=== PATIENT | male | born 1985 | race Caucasian/White ===

== ENCOUNTER 2021-12-22 10:07 | Emergency (ER) | payer BC, OTHER ==
--- NOTE | 2021-12-22 13:18 | ED ---
General Adult HPI - General Chief complaint: Extremity Problem,Nontraumatic Stated complaint: possible blood clot Time Seen by Provider: 12/22/21 12:50 Source: patient, RN notes reviewed, old records reviewed Mode of arrival: ambulatory Limitations: no limitations - History of Present Illness Initial comments: Patient is a 36-year-old male with past medical history remarkable for hypertension who presents emergency Department complaining of a concern for possible blood clot in the right groin. Endorses a 2 day history of swelling in the right groin as well as redness. Urgent care sent him here for ultrasound rule out DVT. No history of blood clots in himself or family members. No recent surgeries or periods of inactivity. No recent long distance travel. Denies any numbness or weakness in the right leg. Has no other acute complaint at this time. Denies any chest pain, shortness breath, dyspnea, cough, hemoptysis. No acute point at this time. Presents for ultrasound. - Related Data Home Medications Medication Instructions Recorded Confirmed Benazepril HCl 40 mg PO HS 11/26/14 03/23/16 amLODIPine [Norvasc] 10 mg PO HS 11/26/14 03/23/16 hydroCHLOROthiazide 25 mg PO DAILY 11/26/14 03/23/16 Ibuprofen [Motrin] 200 mg PO Q6HR PRN 03/23/16 03/23/16 Metoprolol Tartrate [Lopressor] 100 mg PO AC-BID 03/23/16 03/23/16 Previous Rx's Medication Instructions Recorded Sulfamethox-Tmp 800-160Mg [Bactrim 1 tab PO Q12HR 5 Days #10 tab 12/22/21 DS 800-160 mg] Allergies Allergy/AdvReac Type Severity Reaction Status Date / Time Penicillins Allergy Unknown Verified 12/22/21 10:24 Childhood Review of Systems ROS Statement: Those systems with pertinent positive or pertinent negative responses have been documented in the HPI. Review of Systems: CONST: Denies fever EYES: Denies blurry vision ENT: Denies nasal congestion C/V: Denies Chest pain RESP: Denies shortness of breath GI: Denies abdominal pain : Denies dysuria SKIN: Endorses right thigh erythema MSK: Endorses right thigh pain NEURO: Denies headache ROS Other: All systems not noted in ROS Statement are negative. Past Medical History Past Medical History: Hypertension History of Any Multi-Drug Resistant Organisms: None Reported Past Surgical History: No Surgical Hx Reported Past Psychological History: No Psychological Hx Reported Smoking Status: Current some day smoker Past Alcohol Use History: Occasional Past Drug Use History: None Reported General Exam - General Exam Comments Initial Comments: General: Appears in no acute distress. HEAD: Normal with no signs of head trauma. EYES: EOMI ENT: Hearing grossly intact, normal oropharynx. RESPIRATORY: Clear breath sounds bilaterally. No wheezes, rales, or rhonchi. C/V: Regular rate and rhythm. S1 and S2 auscultated, no edema, peripheral pulses 2+ and intact throughout ABD: Abd is soft, nontender, nondistended EXT: Normal range of motion, no obvious deformity. Patient does have some erythema and tenderness to palpation over the anteromedial aspect of the right thigh. SKIN: Patient has some erythema located over the anterior medial aspect of the right thigh. NEURO: Alert and oriented 4. No focal deficits. Limitations: no limitations Course Vital Signs 12/22/21 12/22/21 10:17 10:19 Temperature 97 F L 98.6 F Pulse Rate 68 72 Respiratory 18 18 Rate Blood Pressure 153/100 153/100 O2 Sat by Pulse 98 98 Oximetry Medical Decision Making - Medical Decision Making Based on the patient's presentation and physical exam, I'm concerned for possible DVT the right lower extremity. We will obtain a duplex. Did offer analgesic which she refused. He has no signs or symptoms of a pulmonary embolism at this time I did not believe that he requires further workup per vital signs are within normal limits. There is no hypoxia or increased work of breathing. No dyspnea. He was in agreement this plan. Patient's duplex ultrasound showed no signs of blood clot. Patient does have an enlarged lymph node in the right groin. This likely source of his pain. With overlying erythema, cannot rule out mild cellulitis. Discussed this with the patient. He expressed understanding. Will be placed on a short course of antibiotics. He'll follow up with his PCP. I will provide the patient with a prescription for Bactrim. I instructed the patient to follow up with their PCP in the next 3 days . I explained that the patient should return to the emergency department if they experience any worsening symptoms. Strict return precautions were discussed with the patient. The patient expressed understanding of these instructions. I answered all questions that the patient had. The patient was discharged home in good condition with their prescriptions and follow up information. Disposition Clinical Impression: Enlarged lymph node, Cellulitis Disposition: HOME SELF-CARE Condition: Good Instructions (If sedation given, give patient instructions): Lymphadenopathy (ED), Cellulitis (ED) Prescriptions: Sulfamethox-Tmp 800-160Mg [Bactrim DS 800-160 mg] 1 tab PO Q12HR 5 Days #10 tab Is patient prescribed a controlled substance at d/c from ED?: No Referrals: None,Stated [Primary Care Provider] - 1-2 days Time of Disposition: 14:20
--- NOTE | 2021-12-22 14:03 | US ---
EXAMINATION TYPE: US venous doppler duplex LE RT DATE OF EXAM: 12/22/2021 1:45 PM COMPARISON: NONE CLINICAL HISTORY: evaluate for dvt. Right groin pain SIDE PERFORMED: Right TECHNIQUE: The lower extremity deep venous system is examined utilizing real time linear array sonog alla with graded compression, doppler sonography and color-flow sonography. VESSELS IMAGED: Common Femoral Vein Deep Femoral Vein Greater Saphenous Vein * Femoral Vein Popliteal Vein Small Saphenous Vein * Proximal Calf Veins (* superficial vessels) Right Leg: Appears negative for DVT Scanned right groin at patient's area of concern: 3.0 x 1.0 x 2.4cm lymph node seen Grayscale, color doppler, spectral doppler imaging performed of the deep veins of the right lower ext remity. There is normal flow, compressibility, vascular waveforms. IMPRESSION: No ultrasound evidence for acute DVT in the right lower extremity. A prominent right amy in lymph node is seen but there is retention of normal fatty hilum and measures 1.0 cm short axis sug gesting reactive in etiology.
[2021-12-22 14:50] VITALS: BP 176/107; PULSE 63; RESP 16; TEMP 98
== END 2021-12-22 15:08 | disposition home or self-care (01) ==
LOC: EC 10:07
DX: R59.9 Enlarged lymph nodes, unspecified (principal); L03.90 Cellulitis, unspecified; I10 Essential (primary) hypertension; F17.200 Nicotine dependence, unspecified, uncomplicated; Z72.89 Other problems related to lifestyle; Z79.899 Other long term (current) drug therapy; Z88.0 Allergy status to penicillin
CPT/HCPCS: 99283

== ENCOUNTER 2022-07-05 07:31 | Emergency (ER) | payer OTHER ==
[2022-07-05 07:54] VITALS: RESP 18
--- NOTE | 2022-07-05 08:26 | CT ---
EXAMINATION TYPE: CT brain wo con DATE OF EXAM: 07/05/2022 COMPARISON: None HISTORY: Headache x [address] DLP: 1099.[address] of the brain was performed. The ventricles, basal cisterns and sulci overlying the cerebral convexities demonstrate a normal appe arance. There is no evidence for intracranial hemorrhage or sulcal effacement. No mass effects are seen. Osseous calvarium is intact. If symptoms persist consider MRI as clinically warranted. IMPRESSION: 1. No acute intracranial process is seen at this time.
[2022-07-05 08:53] LABS: ALT 201 U/L (4-49); AST 142 U/L (17-59); African American GFR (CKD) >90 (>60 ml/min/1.73 sqM); Albumin 4.1 g/dL (3.5-5.0); Alkaline Phosphatase 210 U/L (38-126); Anion Gap 8 mmol/L; Blood Urea Nitrogen 15 mg/dL (9-20); Calcium 9.2 mg/dL (8.4-10.2); Carbon Dioxide 30 mmol/L (22-30); Chloride 99 mmol/L (98-107); Glucose 170 mg/dL (74-99); Non-African American GFR(CKD) >90 (>60 ml/min/1.73 sqM); Potassium 3.4 mmol/L (3.5-5.1); Sodium 137 mmol/L (137-145); Total Bilirubin 0.6 mg/dL (0.2-1.3); Total Protein 6.9 g/dL (6.3-8.2)
[2022-07-05 09:14] LABS: Basophils # (A) 0.1 k/uL (0-0.2); Basophils % (A) 1 %; Eosinophils # (A) 0.2 k/uL (0-0.7); Eosinophils % (A) 3 %; HGB 16.1 gm/dL (13.0-17.5); Lymphocytes # (A) 1.3 k/uL (1.0-4.8); Lymphocytes % (A) 22 %; MCH 32.3 pg (25.0-35.0); MCHC 36.5 g/dL (31.0-37.0); MCV 88.5 fL (80.0-100.0); Mean Platelet Volume 8.5; Monocytes # (A) 0.2 k/uL (0-1.0); Monocytes % (A) 4 %; Neutrophils # (A) 3.9 k/uL (1.3-7.7); Neutrophils % (A) 67 %; Platelet Count 179 k/uL (150-450); RBC 4.97 m/uL (4.30-5.90); WBC 5.8 k/uL (3.8-10.6)
[2022-07-05] MEDS ORDERED: diphenhydrAMINE 50 MG/ML 1 ML VIAL IVP STA (11:33)
[2022-07-05] MEDS ORDERED: KETOROLAC 15 MG/ML 1 ML VIAL IVP STA (11:33)
[2022-07-05] MEDS ORDERED: METOCLOPRAMIDE 5 MG/ML 2 ML VIAL IVP STA (11:33)
[2022-07-05] MEDS ORDERED: SODIUM CHLORIDE 0.9% 1,000 ML IV STA (11:33)
--- NOTE | 2022-07-05 12:22 | ED ---
Headache HPI - General Chief Complaint: Headache Stated Complaint: pain upper portion of body Time Seen by Provider: 07/05/22 09:55 Source: patient, RN notes reviewed Mode of arrival: ambulatory Limitations: no limitations - History of Present Illness Initial Comments: Patient is a pleasant 37-year-old male presenting to the emergency room with complaints of headache radiating down his neck into his back. He reports that the headache began after having a stress test on June 26. He has not received the results of this test however he does state that the appointment was pushed back due to provider availability. He reports that the headache is a bandage in nature. He does have a history of headaches in the past and Motrin is helping with the pain however he is concerned because the headache keeps returning. He denies any visual disturbances, neurological deficits, numbness, tingling, weakness, dizziness, chest pain, shortness breath, nausea, vomiting, altered mental status, fevers or chills. He has a past medical history significant for hypertension. - Related Data Home Medications Medication Instructions Recorded Confirmed Benazepril HCl 40 mg PO HS 11/26/14 07/05/22 amLODIPine [Norvasc] 10 mg PO HS 11/26/14 07/05/22 hydroCHLOROthiazide 25 mg PO DAILY 11/26/14 07/05/22 Metoprolol Tartrate [Lopressor] 100 mg PO BID 03/23/16 07/05/22 cloNIDine HCL [Catapres] 0.1 mg PO DAILY 07/05/22 07/05/22 Allergies Allergy/AdvReac Type Severity Reaction Status Date / Time amoxicillin Allergy Unknown Verified 07/05/22 12:54 Childhood Penicillins Allergy Unknown Verified 07/05/22 12:55 Childhood Review of Systems ROS Statement: Those systems with pertinent positive or pertinent negative responses have been documented in the HPI. ROS Other: All systems not noted in ROS Statement are negative. Past Medical History Past Medical History: Hypertension History of Any Multi-Drug Resistant Organisms: None Reported Past Surgical History: No Surgical Hx Reported Past Psychological History: No Psychological Hx Reported Smoking Status: Current some day smoker Past Alcohol Use History: Occasional Past Drug Use History: None Reported General Exam Limitations: no limitations General appearance: alert, in no apparent distress Head exam: Present: atraumatic, normocephalic, normal inspection Eye exam: Present: normal appearance, PERRL, EOMI. Absent: scleral icterus, c onjunctival injection, periorbital swelling ENT exam: Present: normal exam, mucous membranes moist Neck exam: Present: normal inspection. Absent: tenderness, lymphadenopathy Respiratory exam: Present: normal lung sounds bilaterally. Absent: respiratory distress, wheezes, rales, rhonchi, stridor Cardiovascular Exam: Present: regular rate, normal rhythm, normal heart sounds. Absent: systolic murmur, diastolic murmur, rubs, gallop, clicks GI/Abdominal exam: Present: soft, normal bowel sounds. Absent: distended, tenderness, guarding, rebound, rigid Rectal exam: Present: deferred Extremities exam: Present: normal inspection. Absent: pedal edema, joint swelling Back exam: Present: normal inspection Neurological exam: Present: alert, oriented X3, CN II-XII intact Psychiatric exam: Present: normal affect, normal mood Skin exam: Present: warm, dry, intact, normal color. Absent: rash Course Vital Signs 07/05/22 07/05/22 07:48 13:49 Temperature 98.4 F 98.9 F Pulse Rate 72 87 Respiratory 18 18 Rate Blood Pressure 147/100 149/98 O2 Sat by Pulse 98 98 Oximetry Medical Decision Making - Medical Decision Making 40-year-old male presenting to the emergency room with complaints of headache radiating down his neck into his back. While in triage attending physician ordered a CT of the brain along with CBC and CMP. CT of the brain without contrast image intervertebral may demonstrates no ischemia, intracranial hemorrhage or mass effect. EKG demonstrates sinus rhythm. CBC is unremarkable. CMP reveals continued mildly elevated liver enzymes which patient previously was aware of. Bilirubin is normal with no evidence of acute hepatic failure. No indication for further diagnostic imaging or laboratory studies. Will give migraine cocktail of Benadryl, Toradol, Reglan and an IV fluid bolus. Symptoms improved after migraine cocktail. 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 Advise use of Tylenol or Motrin as needed for pain. Return parameters to the emergency room reviewed. Case discussed with Dr. Renteria. - Lab Data Result diagrams: 07/05/22 08:25 07/05/22 08:25 Lab Results 07/05/22 07/05/22 Range/Units 08:25 08:25 WBC 5.8 (3.8-10.6) k/uL RBC 4.97 (4.30-5.90) m/uL Hgb 16.1 (13.0-17.5) gm/dL Hct 44.0 (39.0-53.0) % MCV 88.5 (80.0-100.0) fL MCH 32.3 (25.0-35.0) pg MCHC 36.5 (31.0-37.0) g/dL RDW 13.0 (11.5-15.5) % Plt Count 179 (150-450) k/uL MPV 8.5 Neutrophils % 67 % Lymphocytes % 22 % Monocytes % 4 % Eosinophils % 3 % Basophils % 1 % Neutrophils # 3.9 (1.3-7.7) k/uL Lymphocytes # 1.3 (1.0-4.8) k/uL Monocytes # 0.2 (0-1.0) k/uL Eosinophils # 0.2 (0-0.7) k/uL Basophils # 0.1 (0-0.2) k/uL Sodium 137 (137-145) mmol/L Potassium 3.4 L (3.5-5.1) mmol/L Chloride 99 (98-107) mmol/L Carbon Dioxide 30 (22-30) mmol/L Anion Gap 8 mmol/L BUN 15 (9-20) mg/dL Creatinine 0.73 (0.66-1.25) mg/dL Est GFR (CKD-EPI)AfAm >90 (>60 ml/min/1.73 sqM) Est GFR (CKD-EPI)NonAf >90 (>60 ml/min/1.73 sqM) Glucose 170 H (74-99) mg/dL Calcium 9.2 (8.4-10.2) mg/dL Total Bilirubin 0.6 (0.2-1.3) mg/dL AST 142 H (17-59) U/L ALT 201 H (4-49) U/L Alkaline Phosphatase 210 H (38-126) U/L Total Protein 6.9 (6.3-8.2) g/dL Albumin 4.1 (3.5-5.0) g/dL - EKG Data EKG Comments: EKG completed at 0941 interpreted by me demonstrates sinus rhythm, ventricular rate 67 bpm, AK interval 170 ms, QRS duration 106 ms, QT/QTC 391/406 ms, PRT axes 30, 20, 0 - Radiology Data Radiology results: report reviewed, image reviewed Disposition Clinical Impression: Headache Disposition: HOME SELF-CARE Condition: Stable Instructions (If sedation given, give patient instructions): Acute Headache (ED) Additional Instructions: Please continue to utilize ibuprofen or Tylenol [id number] as needed for headaches. If change in headache characteristics or other associated symptoms or worsening concerns please return to the emergency room. Please follow-up with your primary care provider in regards to your headaches along with slightly elevated liver enzymes. Please also follow up with cardiology regarding recent stress test results. Please return to the Emergency Department if symptoms worsen or any other concerns. Is patient prescribed a controlled substance at d/c from ED?: No Referrals: None,Stated [Primary Care Provider] - 1-2 days Time of Disposition: 13:30
[2022-07-05 13:58] VITALS: BP 149/98; PULSE 87; TEMP 98.9
== END 2022-07-05 13:49 | disposition home or self-care (01) ==
LOC: EC 07:31
DX: R51.9 Headache, unspecified (principal); I10 Essential (primary) hypertension; F17.200 Nicotine dependence, unspecified, uncomplicated; Z88.0 Allergy status to penicillin; Z79.899 Other long term (current) drug therapy
CPT/HCPCS: 36415; 93005; 80053; 85025; 70450; 99284; 96374; 96375 ×2; 96361; J1200; J2765; J1885

== ENCOUNTER 2022-10-11 17:53 | Emergency (ER) | payer OTHER ==
[2022-10-11 19:23] VITALS: TEMP 98
--- NOTE | 2022-10-11 19:25 | ED ---
General Adult HPI - General Stated complaint: Abd Pain/Bloating Source: patient Mode of arrival: ambulatory Limitations: no limitations - History of Present Illness Initial comments: Well appearing 37 year old male presents with complaints of black tarry stools for one week with 8/10 epigastric abdominal pain. Feels hungry and when he eats pain improves. Kids have also been sick but they're symptoms have resolved. Went to urgent care Saturday and had blood work but doesn't have results. They gave him pepcid with no improvement. States feels like an ulcer. History of HTN. Denies surgical history. Daily smoker. Uses marijuana to help him sleep. No other drug use. -: week(s) (1) Location: abdomen (epigastric) Consistency: intermittent Improves with: eating Associated Symptoms: denies other symptoms Treatments Prior to Arrival: other (pepcid) - Related Data Home Medications Medication Instructions Recorded Confirmed Benazepril HCl 40 mg PO HS 11/26/14 07/05/22 amLODIPine [Norvasc] 10 mg PO HS 11/26/14 07/05/22 hydroCHLOROthiazide 25 mg PO DAILY 11/26/14 07/05/22 Metoprolol Tartrate [Lopressor] 100 mg PO BID 03/23/16 07/05/22 cloNIDine HCL [Catapres] 0.1 mg PO DAILY 07/05/22 07/05/22 Previous Rx's Medication Instructions Recorded Famotidine [Pepcid] 20 mg PO BID #28 tablet 10/11/22 Peg 3350 (236 gm/Btl) + Lytes 4,000 ml PO DIRECTED #1 each 10/11/22 [Golytely Lavage] Allergies Allergy/AdvReac Type Severity Reaction Status Date / Time amoxicillin Allergy Unknown Verified 10/11/22 19:22 Childhood Penicillins Allergy Unknown Verified 10/11/22 19:22 Childhood Review of Systems ROS Statement: Those systems with pertinent positive or pertinent negative responses have been documented in the HPI. ROS Other: All systems not noted in ROS Statement are negative. Past Medical History Past Medical History: Hypertension History of Any Multi-Drug Resistant Organisms: None Reported Past Surgical History: No Surgical Hx Reported Past Psychological History: No Psychological Hx Reported Smoking Status: Current some day smoker Past Alcohol Use History: Occasional Past Drug Use History: None Reported General Exam General appearance: alert, in no apparent distress Head exam: Present: atraumatic Eye exam: Present: normal appearance. Absent: scleral icterus, conjunctival injection, periorbital swelling, periorbital tenderness Respiratory exam: Absent: respiratory distress, accessory muscle use Cardiovascular Exam: Present: regular rate GI/Abdominal exam: Present: soft. Absent: rigid Rectal exam: Present: normal rectal tone. Absent: decreased rectal tone, fecal impaction, hemorrhoids, mass, tenderness Extremities exam: Present: normal capillary refill Neurological exam: Present: alert, oriented X3 Psychiatric exam: Present: normal affect, normal mood Skin exam: Present: warm, dry, normal color. Absent: cyanosis, diaphoretic, petechiae, pallor Course Vital Signs 10/11/22 10/11/22 10/11/22 19:19 21:22 22:17 Temperature 98.0 F Pulse Rate 76 80 89 Respiratory 20 18 18 Rate Blood Pressure 193/125 180/112 190/110 O2 Sat by Pulse 98 100 100 Oximetry Medical Decision Making - Medical Decision Making Patient does have a history of high blood pressure. Did not take his evening medications. He was given GI cocktail, Protonix and IV fluids with some relief. Hemoglobin and hematocrit are stable. No evidence of leukocytosis. Electrolytes unremarkable. Occult blood negative. KUB x-ray interpreted by me shows no evidence of obstruction or free air. Radiologist interpretation nonspecific bowel gas pattern without radiographic evidence for acute process. Patient states he has been having problems with constipation. Offered GoLYTELY prescription and accepted. Symptoms are consistent with peptic ulcer disease as epigastric pain is resolved with eating. He has seen Dr. Erickson in the past and was recommended to follow up with her for continuation of care. Directed to take Pepcid twice a day. Patient agreeable to this plan of care. Case discussed with Dr. Cox Was pt. sent in by a medical professional or institution (, PA, CLINICAL APPLICATIONS SPECIALIST, urgent care, hospital, or residential...) When possible be specific @ -No Did you speak to anyone other than the patient for history (EMS, parent, family, police, friend...)? What history was obtained from this source @ -No Did you review nursing and triage notes (agree or disagree)? Why? @ -I reviewed and agree with nursing and triage notes Were old charts reviewed (outside hosp., previous admission, EMS record, old EKG, old radiological studies, urgent care reports/EKG's, residential records)? Report findings @ -No old charts were reviewed Differential Diagnosis (chest pain, altered mental status, abdominal pain women, abdominal pain men, vaginal bleeding, weakness, fever, dyspnea, syncope, headache, dizziness, GI bleed, back pain, seizure, CVA, palpatations, mental health, musculoskeletal)? @ -Differential Abdominal Pain Men: Appendicitis, cholecystitis, diverticulosis, ischemic bowel, pancreatitis, hepatitis, UTI, gastroenteritis, AAA, incarcerated hernia, bowel obstruction, constipation, inflammatory bowel, hepatitis, peptic ulcer disease, splenic infarction, perforated viscus, testicular torsion, this is not meant to be an all-inclusive list EKG interpreted by me (3pts min.). @ -n/a X-rays interpreted by me (1pt min.). @ -yes as above CT interpreted by me (1pt min.). @ -None done U/S interpreted by me (1pt. min.). @ -None done What testing was considered but not performed or refused? (CT, X-rays, U/S, labs)? Why? @ -None What meds were considered but not given or refused? Why? @ -None Did you discuss the management of the patient with other professionals (professionals i.e. , PA, CLINICAL APPLICATIONS SPECIALIST, lab, RT, psych nurse, social service technician, oral surgery physician, teacher, principal gifts officer, rifle case repairer)? Give summary @ -No Was smoking cessation discussed for >3mins.? @ -No Was critical care preformed (if so, how long)? @ -No Were there social determinants of health that impacted care today? How? (Homelessness, low income, unemployed, alcoholism, drug addiction, transportation, low edu. Level, literacy, decrease access to med. care, shelter, rehab)? @ -No Was there de-escalation of care discussed even if they declined (Discuss DNR or withdrawal of care, Hospice)? DNR status @ -No What co-morbidities impacted this encounter? (DM, HTN, Smoking, COPD, CAD, Cancer, CVA, ARF, Chemo, Hep., AIDS, mental health diagnosis, sleep apnea, morb id obesity)? @ -Hypertension Was patient admitted / discharged? Hospital course, mention meds given and route, prescriptions, significant lab abnormalities, going to OR and other pertinent info. @ -Discharged Undiagnosed new problem with uncertain prognosis? @ -No Drug Therapy requiring intensive monitoring for toxicity (Heparin, Nitro, Insulin, Cardizem)? @ -No Were any procedures done? @ -No Diagnosis/symptom? @ -Epigastric abdominal pain Acute, or Chronic, or Acute on Chronic? @ -Acute Uncomplicated (without systemic symptoms) or Complicated (systemic symptoms)? @ -Uncomplicated Side effects of treatment? @ -No Exacerbation, Progression, or Severe Exacerbation? @ -No Poses a threat to life or bodily function? How? (Chest pain, USA, GA, pneumonia, PE, COPD, DKA, ARF, appy, cholecystitis, CVA, Diverticulitis, Homicidal, Suicidal, threat to staff... and all critical care pts) @ -No - Lab Data Result diagrams: 10/11/22 20:45 10/11/22 20:45 Lab Results 10/11/22 10/11/22 10/11/22 Range/Units 20:12 20:45 20:45 WBC 9.4 (3.8-10.6) k/uL RBC 5.12 (4.30-5.90) m/uL Hgb 16.2 (13.0-17.5) gm/dL Hct 46.6 (39.0-53.0) % MCV 91.2 (80.0-100.0) fL MCH 31.7 (25.0-35.0) pg MCHC 34.8 (31.0-37.0) g/dL RDW 12.7 (11.5-15.5) % Plt Count 359 (150-450) k/uL MPV 7.1 Neutrophils % 44 % Lymphocytes % 44 % Monocytes % 6 % Eosinophils % 3 % Basophils % 1 % Neutrophils # 4.1 (1.3-7.7) k/uL Lymphocytes # 4.1 (1.0-4.8) k/uL Monocytes # 0.6 (0-1.0) k/uL Eosinophils # 0.3 (0-0.7) k/uL Basophils # 0.1 (0-0.2) k/uL PT (9.0-12.0) sec INR (<1.2) APTT (22.0-30.0) sec Sodium 138 (137-145) mmol/L Potassium 3.6 (3.5-5.1) mmol/L Chloride 98 (98-107) mmol/L Carbon Dioxide 32 H (22-30) mmol/L Anion Gap 8 mmol/L BUN 15 (9-20) mg/dL Creatinine 0.64 L (0.66-1.25) mg/dL Est GFR (CKD-EPI)AfAm >90 (>60 ml/min/1.73 sqM) Est GFR (CKD-EPI)NonAf >90 (>60 ml/min/1.73 sqM) Glucose 87 (74-99) mg/dL Plasma Lactic Acid Nico (0.7-2.0) mmol/L Calcium 9.7 (8.4-10.2) mg/dL Total Bilirubin 0.4 (0.2-1.3) mg/dL AST 41 (17-59) U/L ALT 52 H (4-49) U/L Alkaline Phosphatase 108 (38-126) U/L Total Protein 7.7 (6.3-8.2) g/dL Albumin 4.6 (3.5-5.0) g/dL Amylase 69 (30-110) U/L Lipase 68 (23-300) U/L Stool Occult Blood Negative (Negative) 10/11/22 10/11/22 Range/Units 20:45 20:45 WBC (3.8-10.6) k/uL RBC (4.30-5.90) m/uL Hgb (13.0-17.5) gm/dL Hct (39.0-53.0) % MCV (80.0-100.0) fL MCH (25.0-35.0) pg MCHC (31.0-37.0) g/dL RDW (11.5-15.5) % Plt Count (150-450) k/uL MPV Neutrophils % % Lymphocytes % % Monocytes % % Eosinophils % % Basophils % % Neutrophils # (1.3-7.7) k/uL Lymphocytes # (1.0-4.8) k/uL Monocytes # (0-1.0) k/uL Eosinophils # (0-0.7) k/uL Basophils # (0-0.2) k/uL PT 10.1 (9.0-12.0) sec INR 0.9 (<1.2) APTT 26.6 (22.0-30.0) sec Sodium (137-145) mmol/L Potassium (3.5-5.1) mmol/L Chloride (98-107) mmol/L Carbon Dioxide (22-30) mmol/L Anion Gap mmol/L BUN (9-20) mg/dL Creatinine (0.66-1.25) mg/dL Est GFR (CKD-EPI)AfAm (>60 ml/min/1.73 sqM) Est GFR (CKD-EPI)NonAf (>60 ml/min/1.73 sqM) Glucose (74-99) mg/dL Plasma Lactic Acid Nico 0.9 (0.7-2.0) mmol/L Calcium (8.4-10.2) mg/dL Total Bilirubin (0.2-1.3) mg/dL AST (17-59) U/L ALT (4-49) U/L Alkaline Phosphatase (38-126) U/L Total Protein (6.3-8.2) g/dL Albumin (3.5-5.0) g/dL Amylase (30-110) U/L Lipase (23-300) U/L Stool Occult Blood (Negative) Disposition Clinical Impression: Peptic ulcer disease Disposition: HOME SELF-CARE Condition: Good Instructions (If sedation given, give patient instructions): Diet for Stomach Ulcers and Gastritis (ED), Abdominal Pain (ED) Additional Instructions: Take Pepcid 20 mg twice a day or 40 mg once a day. Follow-up with your primary care doctor and Dr. Erickson the intake man for continuation of care. Prescriptions: Peg 3350 (236 gm/Btl) + Lytes [Golytely Lavage] 4,000 ml PO DIRECTED #1 each Famotidine [Pepcid] 20 mg PO BID #28 tablet Is patient prescribed a controlled substance at d/c from ED?: No Referrals: None,Stated [Primary Care Provider] - 1-2 days Time of Disposition: 22:05
[2022-10-11] MEDS ORDERED: PANTOPRAZOLE 40 MG/10 ML VIAL IVP STA (19:26)
[2022-10-11] MEDS ORDERED: SODIUM CHLORIDE 0.9% 1,000 ML IV STA (19:26)
--- NOTE | 2022-10-11 19:57 | XR ---
EXAMINATION TYPE: XR KUB DATE OF EXAM: 10/11/2022 7:50 PM INDICATION: Patient age:Male; 37 years old; Reason for study: abdominal pain; COMPARISON: 03/23/2016 TECHNIQUE: One radiographic view of the abdomen was obtained. FINDINGS: The bowel gas pattern is nonspecific without dilated loops of small or large bowel. There i s no evidence for organomegaly or pneumoperitoneum. The osseous structures are intact. No abnormal calcifications are present. Fecal material and gas are demonstrated throughout the colon and rectum. IMPRESSION: Nonspecific bowel gas pattern without radiographic evidence for acute process.
[2022-10-11] MEDS ORDERED: MAG HYDROX/AL HYDROX/SIMETH 30 ML, HYOSCYAMINE ELIXIR 10 ML, LIDOCAINE VISCOUS 2% 10 ML PO STA ×3 (20:16)
[2022-10-11 20:58] LABS: Basophils # (A) 0.1 k/uL (0-0.2); Basophils % (A) 1 %; Eosinophils # (A) 0.3 k/uL (0-0.7); Eosinophils % (A) 3 %; HCT 46.6 % (39.0-53.0); HGB 16.2 gm/dL (13.0-17.5); Lymphocytes # (A) 4.1 k/uL (1.0-4.8); Lymphocytes % (A) 44 %; MCH 31.7 pg (25.0-35.0); MCHC 34.8 g/dL (31.0-37.0); MCV 91.2 fL (80.0-100.0); Mean Platelet Volume 7.1; Monocytes # (A) 0.6 k/uL (0-1.0); Monocytes % (A) 6 %; Neutrophils # (A) 4.1 k/uL (1.3-7.7); Neutrophils % (A) 44 %; Platelet Count 359 k/uL (150-450); RBC 5.12 m/uL (4.30-5.90); RDW 12.7 % (11.5-15.5); WBC 9.4 k/uL (3.8-10.6)
[2022-10-11 21:07] LABS: INR 0.9 (<1.2); Partial Thromboplastin Time 26.6 sec (22.0-30.0); Prothrombin Time 10.1 sec (9.0-12.0)
[2022-10-11 21:14] LABS: ALT 52 U/L (4-49); AST 41 U/L (17-59); African American GFR (CKD) >90 (>60 ml/min/1.73 sqM); Albumin 4.6 g/dL (3.5-5.0); Alkaline Phosphatase 108 U/L (38-126); Amylase 69 U/L (30-110); Anion Gap 8 mmol/L; Blood Urea Nitrogen 15 mg/dL (9-20); Calcium 9.7 mg/dL (8.4-10.2); Carbon Dioxide 32 mmol/L (22-30); Chloride 98 mmol/L (98-107); Glucose 87 mg/dL (74-99); Lipase 68 U/L (23-300); Non-African American GFR(CKD) >90 (>60 ml/min/1.73 sqM); Potassium 3.6 mmol/L (3.5-5.1); Sodium 138 mmol/L (137-145); Total Bilirubin 0.4 mg/dL (0.2-1.3); Total Protein 7.7 g/dL (6.3-8.2)
[2022-10-11 22:17] VITALS: RESP 18
[2022-10-11 22:18] VITALS: BP 190/110; PULSE 89
== END 2022-10-11 22:39 | disposition home or self-care (01) ==
LOC: EC 17:53
DX: K27.9 Peptic ulcer, site unspecified, unspecified as acute or chronic, without hemorrhage or perforation (principal); I10 Essential (primary) hypertension; F17.200 Nicotine dependence, unspecified, uncomplicated; Z88.0 Allergy status to penicillin; Z88.1 Allergy status to other antibiotic agents
CPT/HCPCS: 36415; 80053; 82150; 83605; 83690; 85025; 85610; 85730; 82272; 74018; 99284; 96374; 96361; C9113